=== PATIENT | male | born 1935 | race Caucasian/White ===

== ENCOUNTER 2017-07-18 01:00 | Emergency (ER) | payer OTHER, MEDICARE ==
[~2017-07-18] VITALS: Ht 180.3 cm; Wt 81.7 kg
[2017-07-18] MEDS ORDERED: SYN0.088T PO (01:21)
[2017-07-18] MEDS ORDERED: HYDR-4070 PO (01:21)
[2017-07-18] MEDS ORDERED: CHLO25TA2 PO (01:21)
[2017-07-18] MEDS ORDERED: AMLO-94 PO (01:21)
[2017-07-18] MEDS ORDERED: PRAV20TA4 PO (01:21)
[2017-07-18 02:11] VITALS: BP 104/54
== END 2017-07-18 02:15 | disposition home or self-care (01) ==
LOC: ER 01:01
DX: R00.2 Palpitations (principal); I10 Essential (primary) hypertension; Z88.8 Allergy status to other drugs, medicaments and biological substances; Z79.899 Other long term (current) drug therapy
CPT/HCPCS: 93005; 99283